=== PATIENT | male | born 1985 | race Caucasian/White ===

== ENCOUNTER 2023-10-30 11:09 | Emergency (ER) | payer OTHER ==
[~2023-10-30] VITALS: Ht 180.3 cm; Wt 79.0 kg
[2023-10-30 11:26] LABS: BASOPHILS 0.5 % (0-2); EOSINOPHILS 5.1 % (0-6); HEMATOCRIT 48.6 % (35.0-50.0); HEMOGLOBIN 16.8 g/dL (12.0-18.0); LYMPHOCYTES 33.9 % (24-44); MCH 29.1 (27-36); MCHC 34.4 g/dl (30-36); MCV 84.4 fl (81-99); MONOCYTES 7.7 % (0-12); NEUTROPHILS 52.8 % (39-80); PLATELET COUNT 381 K/uL (140-440); RBC 5.77 M/ul (4.3-5.7); RDW 14.1 (10.5-15.0)
[2023-10-30] MEDS ORDERED: DIPHTH,PERTUSS(ACELL),TET VAC 0.5 ML SYRINGE IM ONE (11:30)
[2023-10-30] MEDS ORDERED: HYDROmorphone HCL 1 MG/ML SYR IV PRN (11:30)
[2023-10-30 11:39] LABS: ALBUMIN 4.2 g/dL (3.4-5.0); ALBUMIN/GLOBULIN RATIO 1.08 (1.1-2.4); ANION GAP 22.5 (7-21); BILIRUBIN, TOTAL 0.2 ng/dL (0.2-1.0); BUN/CREATININE RATIO 17.76 (6.0-28.6); CALCIUM 9.9 mg/dL (8.5-10.1); CREATININE, SERUM 1.52 mg/dL (0.70-1.30); POTASSIUM 3.5 mmol/L (3.5-5.1); PROTEIN, TOTAL 8.1 g/dL (6.4-8.2)
[2023-10-30] MEDS ORDERED: MORPHINE SULFATE 4 MG/ML VIAL IV ONE (11:45)
[2023-10-30] MEDS ORDERED: ondansetron HCL 4 MG/2 ML VIAL IV ONE (12:15)
[2023-10-30] MEDS ORDERED: SODIUM CHLORIDE 0.9% 1,000 ML IV PRN (13:00)
[2023-10-30] MEDS ORDERED: NICOTINE POLACRILEX 4 MG LOZENGE BUCCAL ONE (13:45)
[2023-10-30] MEDS ORDERED: CEPHALEXIN500 MG PO ×2 (15:35)
[2023-10-30] MEDS ORDERED: HYDROCODON-ACE1 EA10 PO ×3 (15:35→15:49)
[2023-10-30] MEDS ORDERED: CEPHALEXIN500 M1 PO (15:49)
== END 2023-10-30 15:53 | disposition home or self-care (01) ==
LOC: ED 11:09
PROVIDERS: Emergency Medicine
DX: S57.82XA Crushing injury of left forearm, initial encounter (principal); W31.9XXA Contact with unspecified machinery, initial encounter; Z23 Encounter for immunization; Z79.899 Other long term (current) drug therapy
CPT/HCPCS: 36415; 73090; 73206; 80053; 85025; 90471; 90715; 99284-25; G0480; J1170; J2270; J2405; J7030; Q9967

== ENCOUNTER 2023-10-31 17:34 | Emergency (ER) | payer OTHER ==
[~2023-10-31] VITALS: Ht 180.3 cm; Wt 75.9 kg
[~2023-10-31 17:34] MED LIST: CEPHALEXIN500 M1 PO; CEPHALEXIN500 MG PO; HYDROCODON-ACE1 EA10 PO
--- OUTSIDE RECORDS SUMMARY | 2023-10-31 17:35 | XMS ---
PreManage Notification: REJI JEFFRIES Security Obstetrics Gynecology Md Events No recent Security Events currently on file CRITERIA MET - [facility] - 2 Visits in 30 Days CARE PROVIDERS There are no care providers on record at this time. Otilia has no Care Guidelines for this patient. [facility] NOTE: Visits indicate total known visits. ED/C VISIT TRACKING (12 MO.) 10/31/2023 17:35 [facility] [place] TYPE: Emergency COMPLAINT: - RECHECK/NUMBNESS TINGLING 10/30/2023 11:10 [facility] [place] TYPE: Emergency COMPLAINT: - ARM INJURY INPATIENT VISIT TRACKING (12 MO.) No inpatient visits to display in this time frame [email or web address]
[2023-10-31] MEDS ORDERED: KETOROLAC TROMETHAMINE 30 MG/ML VIAL IM ONE (19:45)
[2023-10-31 20:11] VITALS: BP 123/76
== END 2023-10-31 20:11 | disposition home or self-care (01) ==
LOC: ED 17:34
DX: S47.2XXA Crushing injury of left shoulder and upper arm, initial encounter (principal); S50.12XA Contusion of left forearm, initial encounter; S60.222A Contusion of left hand, initial encounter; W31.89XA Contact with other specified machinery, initial encounter
CPT/HCPCS: 96372; 99283-25; J1885

== ENCOUNTER 2023-11-10 16:59 | Emergency (ER) | payer OTHER ==
[~2023-11-10] VITALS: Ht 180.3 cm; Wt 76.0 kg
--- OUTSIDE RECORDS SUMMARY | 2023-11-10 17:06 | XMS ---
PreManage Notification: REJI JEFFRIES Security Time Signal Wirer Events No recent Security Events currently on file CRITERIA MET - [facility] - 2 Visits in 30 Days CARE PROVIDERS There are no care providers on record at this time. Otilia has no Care Guidelines for this patient. Stevo VISIT COUNT (12 MO.) [address] [facility] TOTAL 3 NOTE: Visits indicate total known visits. ED/C VISIT TRACKING (12 MO.) 11/10/2023 17:[address] [facility] [place] TYPE: Emergency COMPLAINT: - ARM PAIN 10/31/2023 17:35 [facility] [place] TYPE: Emergency COMPLAINT: - RECHECK/NUMBNESS TINGLING DIAGNOSES: - Contact with other specified machinery, initial encounter - Contusion of left forearm, initial encounter - Contusion of left hand, initial encounter - Crushing injury of left shoulder and upper arm, initial encounter 10/30/2023 11:10 [facility] [place] TYPE: Emergency COMPLAINT: - ARM INJURY DIAGNOSES: - Contact with unspecified machinery, initial encounter - Crushing injury of left forearm, initial encounter - Encounter for immunization - Other buttermaker (current) drug therapy INPATIENT VISIT TRACKING (12 MO.) No inpatient visits to display in this time frame [email or web address]
[2023-11-10] MEDS ORDERED: IBUPROFEN600 MG PO (17:27)
[2023-11-10] MEDS ORDERED: HYDROCODON-ACE1 EA10 PO (18:13)
[2023-11-10] MEDS ORDERED: NEURONTIN300 MG PO (18:13)
[2023-11-10 18:21] VITALS: BP 126/87
== END 2023-11-10 18:20 | disposition home or self-care (01) ==
LOC: ED 16:59
DX: S57 Crushing injury of elbow and forearm (principal); X58.XXXD Exposure to other specified factors, subsequent encounter; Z79.1 Long term (current) use of non-steroidal anti-inflammatories (NSAID)
CPT/HCPCS: 99283

== ENCOUNTER 2023-12-24 10:15 | Emergency (ER) | payer OTHER ==
[~2023-12-24] VITALS: Ht 180.3 cm; Wt 79.9 kg
[~2023-12-24 10:15] MED LIST changes: +GABAPENTIN300 MG PO; +IBUPROFEN600 MG PO; +NEURONTIN300 MG PO
--- OUTSIDE RECORDS SUMMARY | 2023-12-24 10:22 | XMS ---
PreManage Notification: REJI JEFFRIES Security Watch Supervisor Events No recent Security Events currently on file CRITERIA MET - [facility] - 2 Visits in 30 Days CARE PROVIDERS There are no care providers on record at this time. Otilia has no Care Guidelines for this patient. Stevo VISIT COUNT (12 MO.) 5 [facility] TOTAL 5 NOTE: Visits indicate total known visits. ED/C VISIT TRACKING (12 MO.) 12/24/2023 10:16 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 [place] TYPE: Emergency COMPLAINT: - RECHECK/NUMBNESS TINGLING DIAGNOSES: - Contact with other specified machinery, initial encounter - Contusion of left forearm, initial encounter - Contusion of left hand, initial encounter - Crushing injury of left shoulder and upper arm, initial encounter 10/30/2023 11:[address] [facility] [place] TYPE: Emergency COMPLAINT: - ARM INJURY DIAGNOSES: - Contact with unspecified machinery, initial encounter - Crushing injury of left forearm, initial encounter - Encounter for immunization - Other correction (current) drug therapy INPATIENT VISIT TRACKING (12 MO.) No inpatient visits to display in this time frame [email or web address]
[2023-12-24] MEDS ORDERED: ONDANSETRON 4 MG TAB ODT SL ONE (10:45)
[2023-12-24] MEDS ORDERED: OXYCODONE/APAP 5/325 TAB PO ONE (10:45)
[2023-12-24] MEDS ORDERED: PERCOCET 5-3251 EACH PO (11:41)
[2023-12-24] MEDS ORDERED: ONDANSETRON ODT4 MG SL (11:41)
[2023-12-24 11:47] VITALS: BP 121/75
== END 2023-12-24 11:45 | disposition home or self-care (01) ==
LOC: ED 10:15
DX: M79.632 Pain in left forearm (principal)
CPT/HCPCS: 99283; A9270